=== PATIENT | female | born 1985 | race African-American/Black ===

== ENCOUNTER 2016-09-13 20:33 | Emergency (ER) | payer OTHER ==
[2016-09-13 20:07] LABS: INFLUENZA A NEG (NEG); INFLUENZA B POS (NEG)
== END 2016-09-13 20:35 | disposition home or self-care (01) ==
LOC: CFTX 20:33
PROVIDERS: Emergency Medicine
DX: J10.1 Influenza due to other identified influenza virus with other respiratory manifestations (principal); F17.210 Nicotine dependence, cigarettes, uncomplicated; Z88.2 Allergy status to sulfonamides
CPT/HCPCS: 87804; 99283

== ENCOUNTER 2017-02-26 09:19 | Emergency (ER) | payer OTHER ==
[~2017-02-26] VITALS: Ht 162.6 cm; Wt 81.6 kg
== END 2017-02-26 09:47 | disposition home or self-care (01) ==
LOC: CED 09:19
DX: S41.112D Laceration without foreign body of left upper arm, subsequent encounter (principal); F17.210 Nicotine dependence, cigarettes, uncomplicated; Z98.51 Tubal ligation status; Z88.8 Allergy status to other drugs, medicaments and biological substances; X58.XXXD Exposure to other specified factors, subsequent encounter
CPT/HCPCS: 99282